=== PATIENT | male | born 1945 | race Caucasian/White ===

== ENCOUNTER → 2023-06-19 06:24 | Day surgery (SDC) | payer OTHER, SELFPAY | LOC: GI 06:24 | PROVIDERS: ATTENDING PHYSICIAN Internal Medicine Gastroenterology; FAMILY PHYSICIAN Family Medicine | DX: D50.0 Iron deficiency anemia secondary to blood loss (chronic) (principal); K57.50 Diverticulosis of both small and large intestine without perforation or abscess without bleeding; K64.8 Other hemorrhoids; D12.2 Benign neoplasm of ascending colon; Z98.0 Intestinal bypass and anastomosis status | CPT/HCPCS: 45385; 43239; 88305 ==

== ENCOUNTER 2023-10-05 18:09 | Inpatient (IN) | payer OTHER, SELFPAY ==
[2023-10-04 19:29] VITALS: BP 114/58
[2023-10-04 19:49] LABS: % Basophils 0.3 % (0-2); % Eosinophils 1.7 % (0-6); % Immature Granulocytes 0.3 % (0-0.5); % Lymphocytes 11.6 % (20.5-51.1); % Monocytes 7.6 % (1.7-9.3); % Neutrophils 78.5 % (42.2-75.2); Absolute Eosinophils 0.1 10^3/uL (0-0.7); Absolute Lymphocytes 0.9 10^3/uL (1.2-3.4); Absolute Monocytes 0.6 10^3/uL (0.1-0.6); Absolute Neutrophils 5.9 10^3/uL (1.4-6.5); Hematocrit 38.6 % (39.0-52.0); Hemoglobin 13.1 g/dL (13.0-18.0); Mean Corp Hgb Conc. 33.9 g/dL (33.0-37.0); Mean Corpuscular Hgb 31.4 pg (27.0-31.0); Mean Corpuscular Volume 92.6 fL (80.0-94.0); Mean Platelet Volume 9.8 fL (7.4-10.4); Nucleated Red Blood Cells % 0 % (-); Platelet Count 132 10^3/uL (130-400); Red Blood Cell Count 4.17 10^6/uL (4.70-6.10); Red Cell Dist. Width 13.2 % (11.5-14.5); Urine Albumin Negative (Neg - Trace); Urine Bilirubin 1+ (Negative); Urine Character Clear (Clear); Urine Color Yellow; Urine Glucose Negative (Negative); Urine Ketone Negative (Negative); Urine Leukocyte Trace (Negative); Urine Nitrite Negative (Negative); Urine Occult Blood 1+ (Negative); Urine Specific Gravity 1.025 (<1.030); Urine Urobilinogen Negative (Neg - 1+); White Blood Cell Count 7.5 10^3/uL (4.8-10.8)
[2023-10-04 19:59] LABS: Lactic Acid 1.3 mmol/L (0.7-2.0)
[2023-10-04 20:07] LABS: ALT (SGPT) 15 U/L (0-50); AST (SGOT) 24 U/L (17-59); Albumin 3.5 g/dl (3.5-5.0); Alkaline Phosphatase 112 U/L (38-126); Blood Urea Nitrogen 27 mg/dl (9-20); Calcium 9.2 mg/dl (8.4-10.2); Carbon Dioxide 24 mmol/L (22-30); Chloride 107 mmol/L (98-107); Glucose 102 mg/dl (70-99); Potassium 4.2 mmol/L (3.5-5.1); Sodium 137 mmol/L (135-145); Total Bilirubin 0.7 mg/dl (0.2-1.3); Total Protein 5.8 g/dl (6.3-8.2); eGFR 35.44
--- NOTE | 2023-10-04 20:45 | ED.GENMED ---
History of Present Illness
<Mojgan Fonseca PA-C - Last Filed: 10/05/23 00:00>
General
Chief Complaint: Flank Pain
Source: patient and spouse
Exam Limitations: none
Time Seen by Provider: 10/04/23 20:33
Nursing documentation reviewed up to this point in time: agreed with
History of Present Illness
History of Present Illness:
Patient is a 77-year-old male with history hypertension, kidney stones presenting to the emergency department for evaluation of right flank pain. Patient states that he initially noticed discomfort in his right flank yesterday afternoon. He did
take a Tylenol at that time which seemed to improve symptoms. He thought pain was better when he woke up this morning although around 4 PM today pain returned and has been worse. He describes a aching pain in his right flank without any radiation
around to his abdomen or down his leg. Patient denies any associated fevers, chills, abdominal pain, diarrhea or constipation. No associated urinary symptoms including urinary frequency, dysuria, or hematuria. Patient does state this feels
similar to his prior kidney stones. He does follow with Dr. Rowland.
Patient denies any recent heavy lifting or inciting injury/trauma.
Past History
<Mojgan Fonseca PA-C - Last Filed: 10/05/23 00:00>
Past History
ED Past Medical History: HTN, Other (Kidney stones, BPH) and Other (Gastric ulcers, obstructive sleep apnea)
ED Past Surgical History: Urological and Other (Hemigastrectomy)
Social History
Tobacco: Non-smoker
Alcohol: Occasional
Personal:
Living: with family
Employment: Retired
Family History
Family History: Other (Noncontributory)
Review of Systems
<Mojgan Fonseca PA-C - Last Filed: 10/05/23 00:00>
Review of Systems
Allergies reviewed?: Yes
All Other Systems: ROS reviewed and negative except as documented in HPI and ROS
Phy Exam
<Mojgan Fonseca PA-C - Last Filed: 10/05/23 00:00>
Physical Exam
Physical Exam:
Vitals: Patient's vital signs are stable. Afebrile
General: Patient is well appearing, no acute distress. Nontoxic-appearing
Skin: Warm and dry, no rashes or lesions
Head: Normocephalic, atraumatic
Eyes: Sclera nonicteric. EOMs intact. No nystagmus.
Throat: Protecting airway
Neck: Normal ROM, no cervical spine tenderness, no meningismus
Cardiac: Regular rate and rhythm, no murmurs.
Pulm: Normal respiratory effort, no wheezes, rales, rhonchi heard on exam.
Abdomen: Abdomen soft. No abdominal tenderness.
Back: No CVA tenderness bilaterally. No rash.
Extremities: No evidence of cyanosis or edema. Great distal pulses
Neuro: AAOx3. CN II-XII intact. No focal neurologic deficits.
Psychiatric: Normal affect.
Course
<Mojgan Fonseca PA-C - Last Filed: 10/05/23 00:00>
Orders/Labs/Results
Orders:
Orders
10/04/23 19:37
CT Abd/pelvis Wo Iv Cont Urgent
Comment:
Reason For Exam: r flank pain
10/04/23 19:42
Complete Blood Count/With Diff Urgent
Comprehensive Metabolic Panel Urgent
Lactic Acid Stat
Urinalysis Reflex To Culture Urgent
Date Specimen was Collected: 10/04/23
Time Specimen was Collected: 19:32
Urine Microscopic Reflex Cult Urgent
10/04/23 20:45
0.9% Sodium Chloride 1000 ml [Nss] 1,000 ml IV BOLUS
10/04/23 23:14
Morphine Sulfate 4 mg IV NOW STA
Ondansetron Injectable [Zofran] 4 mg IV NOW STA
10/04/23 23:30
UROLOGY CONSULT Urgent
Consulting Provider: Kel Castellano
Was physician already notified: Yes
10/04/23 23:35
Admit/Transfer Patient As Directed
Co-Sign Provider:
Level of Care: Observation services
Assign to:: Medical/Surgical
Physician / Group: wiley campbell
Diagnosis: obstructing right ureteral calculus, elizabeth
Code Status As Directed
Resuscitation Status: Full Code
10/04/23 23:37
PRN Pain Medication Management As Directed
May give lesser potent ordered pain med per pt: Yes
preference::
Protocol:: Medication orders for pain may be administered in a
manner that supports deferring to patient preference
when the pt is:
- Requesting an ordered lesser potent pain medication.
Least to most potent pain medications are defined
as: acetaminophen < NSAID < tramadol < opioids
(morphine, oxycodone, hydromorphone).
- Requesting a lesser dose of the same medication IF
ORDERED.
- Requesting a less intrusive route of administration
if both routes are prescribed by the provider (PO <
IV).
Abnormal Lab Results
10/04/23
19:42
RBC 4.17 L 10^6/uL
(4.70-6.10)
Hct 38.6 L %
(39.0-52.0)
MCH 31.4 H pg
(27.0-31.0)
Absolute Lymphs (auto) 0.9 L 10^3/uL
(1.2-3.4)
Neutrophils % 78.5 H %
(42.2-75.2)
Lymphocytes % 11.6 L %
(20.5-51.1)
BUN 27 H mg/dl
(9-20)
Creatinine 1.9 H mg/dL
(0.7-1.3)
Glucose 102 H mg/dl
(70-99)
Total Protein 5.8 L g/dl
(6.3-8.2)
Ur Occult Blood Reflex 1+ A
(Negative)
Urine Bilirubin 1+ A
(Negative)
Leukocyte Esterase Rfl Trace A
(Negative)
Urine RBC 3-6 A /HPF
(0-2)
10/04/23 19:42
10/04/23 19:42
Vital Signs
Initial and Last Documented VS:
Initial Vital Signs
Temp Pulse Resp BP Pulse Ox
98.1 F 63 16 114/58 99
10/04/23 19:29 10/04/23 19:29 10/04/23 19:29 10/04/23 19:29 10/04/23 19:29
Last Documented Vital Signs
Temp Pulse Resp BP Pulse Ox
98.1 F 59 16 143/70 95
10/04/23 19:29 10/04/23 22:12 10/04/23 22:12 10/04/23 23:37 10/04/23 23:45
<Kermit Keane MD - Last Filed: 10/04/23 21:25>
Orders/Labs/Results
Orders:
Orders
10/04/23 19:37
CT Abd/pelvis Wo Iv Cont Urgent
Comment:
Reason For Exam: r flank pain
10/04/23 19:42
Complete Blood Count/With Diff Urgent
Comprehensive Metabolic Panel Urgent
Lactic Acid Stat
Urinalysis Reflex To Culture Urgent
Date Specimen was Collected: 10/04/23
Time Specimen was Collected: 19:32
Urine Microscopic Reflex Cult Urgent
10/04/23 20:45
0.9% Sodium Chloride 1000 ml [Nss] 1,000 ml IV BOLUS
10/04/23 23:14
Morphine Sulfate 4 mg IV NOW STA
Ondansetron Injectable [Zofran] 4 mg IV NOW STA
10/04/23 23:30
UROLOGY CONSULT Urgent
Consulting Provider: Kel Castellano
Was physician already notified: Yes
10/04/23 23:35
Admit/Transfer Patient As Directed
Co-Sign Provider:
Level of Care: Observation services
Assign to:: Medical/Surgical
Physician / Group: wiley campbell
Diagnosis: obstructing right ureteral calculus, elizabeth
Code Status As Directed
Resuscitation Status: Full Code
10/04/23 23:37
PRN Pain Medication Management As Directed
May give lesser potent ordered pain med per pt: Yes
preference::
Protocol:: Medication orders for pain may be administered in a
manner that supports deferring to patient preference
when the pt is:
- Requesting an ordered lesser potent pain medication.
Least to most potent pain medications are defined
as: acetaminophen < NSAID < tramadol < opioids
(morphine, oxycodone, hydromorphone).
- Requesting a lesser dose of the same medication IF
ORDERED.
- Requesting a less intrusive route of administration
if both routes are prescribed by the provider (PO <
IV).
Abnormal Lab Results
10/04/23
19:42
RBC 4.17 L 10^6/uL
(4.70-6.10)
Hct 38.6 L %
(39.0-52.0)
MCH 31.4 H pg
(27.0-31.0)
Absolute Lymphs (auto) 0.9 L 10^3/uL
(1.2-3.4)
Neutrophils % 78.5 H %
(42.2-75.2)
Lymphocytes % 11.6 L %
(20.5-51.1)
BUN 27 H mg/dl
(9-20)
Creatinine 1.9 H mg/dL
(0.7-1.3)
Glucose 102 H mg/dl
(70-99)
Total Protein 5.8 L g/dl
(6.3-8.2)
Ur Occult Blood Reflex 1+ A
(Negative)
Urine Bilirubin 1+ A
(Negative)
Leukocyte Esterase Rfl Trace A
(Negative)
Urine RBC 3-6 A /HPF
(0-2)
10/04/23 19:42
10/04/23 19:42
Vital Signs
Initial and Last Documented VS:
Initial Vital Signs
Temp Pulse Resp BP Pulse Ox
98.1 F 63 16 114/58 99
10/04/23 19:29 10/04/23 19:29 10/04/23 19:29 10/04/23 19:29 10/04/23 19:29
Last Documented Vital Signs
Temp Pulse Resp BP Pulse Ox
98.1 F 59 16 143/70 95
10/04/23 19:29 10/04/23 22:12 10/04/23 22:12 10/04/23 23:37 10/04/23 23:45
<Mojgan Fonseca PA-C - Last Filed: 10/05/23 00:00>
MDM/Problems Addressed
Differential Diagnosis Includes:
Not limited to: Kidney stone, UTI, pyelonephritis, muscle strain, zoster
MDM/Problems Addressed:
77-year-old male with history of kidney stones presenting with 1 day of right flank pain. No associated fever, chills, nausea, vomiting, or urinary symptoms. Vital signs stable. Patient is afebrile. Labs reviewed. No leukocytosis. There is
mild renal insufficiency noted with a creatinine elevation to 1.9 from what appears to be at baseline around 1. Urine does show blood but no evidence of acute UTI. Will obtain dry CT scan to rule out kidney stone. Patient currently comfortable
denying any pain medication. Will give liter of fluids.
CT report shows an approximately 1.2 cm obstructing right ureteral stone with ureteral dilatation and right sided perinephric edema. Patient without any signs of acute infection�suspect perinephric edema likely reactive. Given size of stone and
associated ELIZABETH�will admit to hospitalist for further management. Given ELIZABETH�will avoid nephrotoxins. Morphine given. Case discussed with urology who will consult tomorrow. Plan for OR tomorrow. Patient accepted to hospitalist service. Patient
seen by attending physician.
Chronic conditions affecting care:
History of kidney stones
Acute Exacerbation and/or Progression of Chronic Illness:
Obstructing right ureteral stone
<Mojgan Fonseca PA-C - Last Filed: 10/05/23 00:00>
*Radiology
Radiology exam reviewed: preliminary read by ED provider (12 mm obstructing right ureteral calculus with associated right ureteral dilatation and right sided perinephric edema) and radiology read reviewed (1.1 cm stone in right mid ureter with
moderate hydronephrosis and perinephric stranding)
*Pulse Oximetry
Patient hypoxic: no
*EKG
Interpreted by ED Provider?: NA
*Art Framing Manager Interpretation
Rate: Art Framing Manager- N/A
*Critical Care Note
Total Time (30-74mins, 75-104mins- exclusive of procedures): Not Applicable
<Mojgan Fonseca PA-C - Last Filed: 10/05/23 00:00>
Patient Management
Discussion with other providers: Hospitalist and Die Attaching Machine Tender (Urology-Dr. Castellano)
Escalation/DeEscalation of care consider admission/obs:
Admit for further management. Plan for OR tomorrow with urology.
ED Attending Note
<Mojgan Fonseca PA-C - Last Filed: 10/05/23 00:00>
-
Portions of this chart may have been created with voice recognition software.� Occasional wrong word or��sound alike� substitutions may have occurred due to the inherent limitations of voice recognition software.
<Kermit Keane MD - Last Filed: 10/04/23 21:25>
ED Attending Note
Patient seen and examined by attending physician: Yes
ED Attending Note:
I have seen and evaluated the patient with a [id number] encounter. I have spoken to the advance practicer provider and involved in the medical history, the physical exam, medical decision making.
Evaluation and management service: agree unless noted differently below.
Results interpretation: agree unless noted differently below.
Focused HPI: 77-year-old male with history as documented presents to the emergency room for evaluation of right flank pain. Patient reports onset of symptoms yesterday and then been waxing and waning since then. Reports a sharp pain in the right
flank radiates towards the right lower abdomen. No clear triggering or relieving factors noted. Denies any associated nausea or vomiting. Denies any change in his bowels. Denies any dysuria, hematuria, change in frequency. Denies any fevers.
He reports identical symptoms with prior kidney stones. Has previous seen Dr. Rowland for urology. Last kidney stone was 10 years ago he says.
Physical exam: Awake alert not in distress. Vital signs normal. Abdomen soft nontender to deep palpation with no masses. No CVA tenderness.
Medical Decision Makin-year-old male presents for evaluation of right flank pain identical to prior kidney stones. Vitals normal. Exam as above. Will check labs including a CBC and a CMP. Check urinalysis. Sent for CT abdomen pelvis.
Offered pain control patient declined. Will provide IV fluid and reassess after the above.
Discharge Plan
Departure
Patient Disposition: Admit
Date of Disposition: 10/04/23
Time of Disposition: 23:26
Presentation/result/management discussed w/ accepting MD/DO: Hospitalist
Discharge Problem:
Right ureteral calculus, ELIZABETH (acute kidney injury)
Prescriptions:
No Action
atenolol 25 MG tablet
25 mg PO DAILY
multivitamin [Daily Multiple] 1 EACH tablet
1 ea PO DAILY
diphenoxylate-atropine 1 TABLET tablet
1 tab PO PRN PRN (Reason: diarrhea)
metronidazole 500 MG tablet
500 mg PO TID
tamsulosin 0.4 mg Capsule
0.4 mg PO DAILY
Referrals:
UNKNOWN - PT DOES,NOT KNOW [Family Provider] -
Interventions
Interventions:
*Risk Screen - Suicide Last Done: 10/04/23 19:29
*General Assessment Last Done: 10/04/23 20:41
*Neglect/Abuse Screening Last Done: 10/04/23 19:29
RU-Vpttcp-Qlhpxeebco Assessment Last Done: 10/04/23 20:58
ED-Male Genitourinary Assessment Last Done: 10/04/23 20:58
Discharge Date and Time
Print Language: TAJIK
[2023-10-04] MEDS: NSS 1000 IV (20:51)
[2023-10-04 20:58] VITALS: BMI 25.8
[2023-10-04 22:12] VITALS: BP 135/66
--- NOTE | 2023-10-04 23:32 | HPS.HSE ---
Family Physician
-
Family Physician: NOT KNOW UNKNOWN - PT DOES
Chief Complaint
-
Right flank pain
History of Present Illness
77-year-old male complaining of right flank pain yesterday afternoon relieved with Tylenol. He reports waking up this morning at around 4 PM this afternoon the pain returned and became worse with an aching pain in his right flank around to his
abdomen. He denies any urinary frequency, urgency, hematuria, dysuria, fever, chills, abdominal pain, constipation, chest pain, palpitations, shortness breath, cough. He has history of prior kidney stones and follows Dr. Rowland. Other past
medical history includes hypertension, BPH, gastric ulcers, ROSA, hemigastrectomy.
Medical History
Past Medical History
Past Medical History: Reports Other
Additional Past Medical History:
hypertension
BPH
gastric ulcers
ROSA
hemigastrectomy
Past Surgical History: Reports Other
Additional Past Surgical History:
hemigastrectomy
Social History
Tobacco: Non-smoker
Alcohol: Occasional
Drug: None
Personal:
Living: With Family
Employment: Retired
Family History
Family History: Other (Father AL mother CHF)
Allergies / Home Medications
Allergies reflects when Allergies were last updated in [facility].
Home Medications with original date entered in [employer] [facility]
Allergy/Medication List:
Medications on admission are unable to be verified or confirmed at this time.
Review of Systems
-
History Source: Patient
A 12 point ROS was completed and negative except as noted: Yes
Constitutional: Denies Fever or Chills
EENT: Denies Sore Throat or Runny Nose
Respiratory: Denies Cough or Trouble Breathing
Cardiac: Denies Chest Pain, Diaphoresis, Palpitations or Syncope
Abdomen/GI: Reports Abdominal Pain (Right flank); Denies Nausea, Vomiting, Diarrhea, Constipated or Bloody Stools
: Reports Flank Pain (Right); Denies Dysuria, Frequency, Incontinence, Difficulty Voiding or Urgency
Musculoskeletal: Denies Joint Pain or Edema
Skin: Denies Itching or Rash
Neurological: Denies Dizzy or Headache
Endocrine: Reports No Symptoms
Hematologic/Lymphatic: Reports No Symptoms
Psych: Reports Calm
Physical Exam
Vital Signs
Vital Signs
Temp Pulse Resp BP Pulse Ox
98.1 F 59 16 135/66 98
10/04/23 19:29 10/04/23 22:12 10/04/23 22:12 10/04/23 22:12 10/04/23 22:12
Physical Exam
General: Comfortable and Conversant; No Fever or Chills
HEENT: NormoCephalic, Anicteric, Moist mucous membranes, PERRLA, [place] Conjunctivae, No Ptosis and Neck Nontender
Respiratory: Clear; No Wheezes, Rales or Rhonchi
Cardiac: S1/S2 and Regular Rhythm; No Murmur, Rub, Gallop or Peripheral Edema
Breast: Deferred by me
GI: Soft, Non Distended, Normal Bowel Sounds, Tender (Right side abdomen) and No Hepatosplenomegaly
Rectal: Deferred by Provider
Genito-urinary: Costovertebral angle tend (Right)
Musculoskeletal: No Clubbing, No Cyanosis and No Edema
Skin: Warm and Dry; No Rash or Jaundice
Neuro: AO x 3, No Motor Deficits, Nonfocal/grossly intact, Cranial Nerves Intact and No Sensory Deficits; No Slurred Speech, Facial Droop or Tremors
Psych: Calm
Laboratory Results
-
10/04/23 19:42
10/04/23 19:42
Laboratory Results
Lactic Acid 1.3 mmol/L (0.7-2.0) 10/04/23 19:42
Total Bilirubin 0.7 mg/dl (0.2-1.3) 10/04/23 19:42
AST 24 U/L (17-59) 10/04/23 19:42
ALT 15 U/L (0-50) 10/04/23 19:42
Alkaline Phosphatase 112 U/L (38-126) 10/04/23 19:42
Data Reviewed
-
CT Scan: Report Reviewed by me
Lab Data: Labs Reviewed by me
Impression/Plan
-
Impression/plan:
Admit to [facility]
#Obstructing right ureteral calculus with ureteral dilation perinephric edema
Abdomen pelvis CT: 12.5 mm obstructing right ureteral stone with ureteral dilation and perinephric edema
Afebrile, nontoxic, WBC 7.5 UA clean
-Consult Dr. smith
-N.p.o. after midnight for OR tomorrow
-IV NSS
-IV pain control tylenol, iv Morphine
-Zofran as needed
#ELIZABETH
Creat 1.9
IV NSS
-Follow BMP
#BPH
-Continue Flomax 0.4 mg daily
#HTN�benign
BP 135/66
Continue atenolol 25 mg daily with hold parameters
#Gastric ulcers/hemigastrectomy Hx
-Will add IV Protonix 40 mg daily
#ROSA
DVT prophylaxis
SCDs
Full code
[2023-10-04] MEDS: MORPHINE SULFATE 4 MG IV (23:35)
[2023-10-04] MEDS: ZOFRAN 4 MG IV (23:36)
[2023-10-04 23:37] VITALS: BP 143/70
--- NOTE | 2023-10-04 23:39 | W.PN.UPDATE ---
Update Note
Progress Note Update
This note serves as an addendum to the H&P by fell cutter TITI Ronit LAZAR
HPI
77M HX HTN, Nephrolithiasis seen at ER foe evaluation of Rt flank pain since pm.
- Initially improved pain with Tylenol
- around last evening, recurrent worsening aching Rt flank pain.
ROS:
denies any associated fevers, chills,
PHX
HTN
Kidney stones
BPH
Gastric ulcers,
Hemigastrectomy
ROSA
HX CDiff
Reviewed VS: unremarkable
PE
Gen: No toxic
HEENT: anicteric
Neck: supple
Lungs:CTA
Cor: S1 S2
Abdomen: benign
; Rt CVA tenderness
DUPLICATING MACHINE SERVICER: AAO3, NFND
MS: no edema
Psych: appropriate
Data
Nl WCC
Cr 1.9 - baseline is 1.0
eGFR 35
UA
3-[address] AP without contrast
1.1 cm stone in mid Rt ureter c/b moderate Rt HN. Modrate peripnephric stranding.
ASSESSMENT & PLAN
Pending Rx reconciliation
1.1 cm stone in mid Rt ureter c/b moderate Rt HN.
Moderate perinephric stranding.
Unremarkable UA : Urine doesn't appear infected
Clinically not septic
- Observing off ABx
- IV NS
- Tyelnol PRN
- NPO
- Uro consulted
ELIZABETH suspect due to obstruction
- IVF
- Trend Cr
Pre existing conditions:
HTN
Kidney stones
BPH
Gastric ulcers,
Hemigastrectomy
ROSA
HX C Diff
DVT Px: SCD
Code: Full code
Obs MS
[2023-10-05] VITALS (14 sets, daily range): BP systolic 116–162; BP diastolic 55–101; PULSE 76–98; BMI 25.5
--- NOTE | 2023-10-05 01:00 | PTCARENOTE ---
Pt arrived to 2S at 0100 from ED for a right kidney stone on a stretcher and walked to bed. Pt not complaining of pain at this time. Bed locked and in lowest position. Call marquez within reach and patient oriented to room.
[2023-10-05] MEDS: NSS 1000 IV ×2 (01:37→11:46)
--- NOTE | 2023-10-05 07:15 | CONS.URO ---
Consultation
-
Date/Time Consultation Requested: 10/05/23
Date/Time Consultation Performed: 10/05/23
Requesting Provider: Mahesh
Performing Provider: Gray
Reason for Consultation: obstructing right ureteral stone, ELIZABETH
Medical History
History of Present Illness
77M w/ prior urologic h/o BPH (follows w/ Dr. Rowland) presenting with worsening right flank pain x24 hrs.
Denies worsening of urinary symptoms.
Denies hematuria or dysuria.
Denies N/V.
WBC WNL
Cr 2.1 (1.9 on admission, elevated from baseline)
UA +RBCs, not indicative of UTI
CTAP w/o IV contrast:
10 mm proximal right ureteral stone w/ moderate hydroureteronephrosis
x2 small non-obstructing right renal stones
Small non-obstructing left renal stone
Left lower pole exophytic mass - possible hyperdense cyst
A/P:
ELIZABETH
Obstructing right ureteral stone
Obstructive uropathy - serologic and radiographic
Left renal cystic mass - possible hyperdense cyst vs. tumor
- To OR today for right URS/LL/stone extraction stent placement vs. stent placement only
- IV Ancef 2g regional maintenance manager to OR
- Surgical consent signed on chart
- Plan for outpatient CT vs. MRI w/ IV contrast (will d/w Dr. Rowland)
Detailed discussion including SDM had w/ patient regarding risks, benefits, alternatives, and potential complications of URS/LL/stone extraction/stent placement.
Risks and potential complications include but not limited to urosepsis, bleeding, ureteral/bladder injury, risk of ureteral stricture formation, need for additional procedures.
D/w patient.
D/w Hospitalist.
Allergies/Home Medications
Allergies
Allergy/AdvReac Type Severity Reaction Status Date / Time
No Known Drug Allergies Allergy Unknown Verified 10/04/23 19:29
Home Medications
�Medication �Instructions �Recorded �Confirmed �Type
tamsulosin 0.4 mg capsule 0.4 mg PO DAILY Urinary Issue 11/19/22 10/05/23 History
amlodipine 5 mg tablet 5 mg PO DAILY Blood Pressure 10/05/23 10/05/23 History
atorvastatin 40 mg tablet 40 mg PO DAILY High Cholesterol 10/05/23 10/05/23 History
benazepril 10 mg tablet 10 mg PO DAILY Blood Pressure 10/05/23 10/05/23 History
ferrous sulfate 325 mg (65 mg 325 mg PO WEEKLY Supplement 10/05/23 10/05/23 History
iron) tablet (Iron (ferrous
sulfate))
finasteride 5 mg tablet 5 mg PO DAILY Urinary Issue 10/05/23 10/05/23 History
Physical Exam
Vital Signs
Vital Signs
Temp Pulse Resp BP Pulse Ox
97.8 F 59 14 137/65 98
10/05/23 07:00 10/05/23 07:00 10/05/23 07:00 10/05/23 07:00 10/05/23 07:00
Lab / Testing Results
Laboratory Results
10/05/23 05:56
10/05/23 05:56
[2023-10-05 07:23] LABS: % Basophils 0.4 % (0-2); % Eosinophils 2.1 % (0-6); % Immature Granulocytes 0.3 % (0-0.5); % Lymphocytes 12.6 % (20.5-51.1); % Neutrophils 75.6 % (42.2-75.2); Absolute Eosinophils 0.2 10^3/uL (0-0.7); Absolute Monocytes 0.7 10^3/uL (0.1-0.6); Absolute Neutrophils 5.8 10^3/uL (1.4-6.5); Hematocrit 36.4 % (39.0-52.0); Hemoglobin 12.5 g/dL (13.0-18.0); Mean Corp Hgb Conc. 34.3 g/dL (33.0-37.0); Mean Corpuscular Hgb 31.3 pg (27.0-31.0); Mean Platelet Volume 10.8 fL (7.4-10.4); Nucleated Red Blood Cells % 0 % (-); Platelet Count 117 10^3/uL (130-400); Red Cell Dist. Width 13.2 % (11.5-14.5); White Blood Cell Count 7.7 10^3/uL (4.8-10.8)
[2023-10-05 07:51] LABS: ALT (SGPT) 13 U/L (0-50); AST (SGOT) 22 U/L (17-59); Alkaline Phosphatase 104 U/L (38-126); Blood Urea Nitrogen 28 mg/dl (9-20); Calcium 8.4 mg/dl (8.4-10.2); Carbon Dioxide 21 mmol/L (22-30); Chloride 109 mmol/L (98-107); Estimated Creatinine Clearance 29 ml/min; Glucose 92 mg/dl (70-99); Potassium 4.5 mmol/L (3.5-5.1); Sodium 136 mmol/L (135-145); Total Bilirubin 0.7 mg/dl (0.2-1.3); Total Protein 5.3 g/dl (6.3-8.2); eGFR 31.43
[2023-10-05] MEDS: FLOMAX 0.4 MG PO (09:06)
--- NOTE | 2023-10-05 10:52 | W.PN.HOSP.TC ---
Today's Communication/Plan
-
OR later today
Trend creatinine
Continue with fluids
Assessment / Plan
Assessment / Plan
#Obstructing right ureteral calculus with ureteral dilation perinephric edema
Abdomen pelvis CT: 12.5 mm obstructing right ureteral stone with ureteral dilation and perinephric edema
Afebrile, nontoxic, WBC 7.5 UA clean
-Consult Dr. smith
-N.p.o. after midnight for OR later today for ureteral stent and possible stone extraction persistent placement only.
-IV NSS
-IV pain control tylenol, iv Morphine
-Zofran as needed
#ELIZABETH likely secondary postrenal with ureteral stone obstruction
Creatinine bumped to 2.1.
IV NSS
Continue to trend BMP postprocedure
# Left renal cystic lesion likely secondary to cyst complex cyst versus malignancy
-Will need outpatient evaluation with urology.
-Sees Dr. Rowland as outpatient. Urology aware.
#BPH
-Continue Flomax 0.4 mg daily
#HTN�benign
Continue atenolol 25 mg daily with hold parameters
#Gastric ulcers/hemigastrectomy Hx
-Will add IV Protonix 40 mg daily
#ROSA
DVT prophylaxis
SCDs
Anticipated Discharge: 24 - 48 hours
Subjective/Interval History
-
Date of Service: October 05, 2023
States of R flank pain
Objective Data
-
Labs:
Laboratory Results
10/05/23
05:56
WBC 7.7
Hgb 12.5 L
Hct 36.4 L
Plt Count 117 L
Sodium 136
Potassium 4.5
Chloride 109 H
Carbon Dioxide 21 L
BUN 28 H
Creatinine 2.1 H
Glucose 92
Calcium 8.4
Total Bilirubin 0.7
AST 22
ALT 13
Alkaline Phosphatase 104
Vital Signs:
Vital Signs
Temp Pulse Resp BP Pulse Ox
97.8 F 57 14 137/65 98
10/05/23 07:00 10/05/23 09:05 10/05/23 07:00 10/05/23 07:00 10/05/23 07:00
Physical Exam
-
General: Well Developed and No Apparent Distress
HEENT: Normocephalic, Atraumatic, Moist Mucous Membranes and Hearing Impaired
Respiratory: Clear to Auscultation
Cardiac: Regular Rhythm and S1/S2; Negative Murmur, Rub or Gallop
GI: Soft, Nondistended, Normal Bowel Sounds and Tender (R flank); Negative Organomegaly
Rectal: Deferred by Provider
Musculoskeletal: No Clubbing, No Cyanosis and No Edema
Skin: Negative Rash
Neuro: Awake and Nonfocal/Grossly Intact
--- NOTE | 2023-10-05 12:43 | CM ---
Initial assessment completed with . Patient was sound asleep. Patient lives with his in a 2 story split level home with 5 steps to enter, B/B on 2nd floor and no bath on lower level. No DME or in-home services. 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
independent and drove. No psychiatric hospitalizations. Pharmacy is [facility] on [address] [facility] in [place] and PCP is [facility]. Anticipate no needs at discharge.
--- NOTE | 2023-10-05 17:05 | W.IMMPOSTOP ---
Surgical Immed Post Op Note
-
Primary Surgeon: Peffer
Assisting Surgeon: none
Pre-op Diagnosis: R ureteral stone
Post-op Diagnosis: R ureteral stone, R ureteral stricture
Procedure Performed: Cystoscopy, R ureteroscopy, laser lithotripsy, ureteral stent
Anesthesia Type: genera;
Specimen / Cultures: stone
Estimated Blood Loss: 2cc
Complications: none
Operative Findings: high grade stricture distal to stone, though soft and easily dilated
stone removed
6x24 stent
--- NOTE | 2023-10-05 17:54 | PTCARENOTE ---
Pt arrived to 2S in bed. Nasal cannula maintained. Pt denies pain at this time. IVF reconnected infusing per order. Pt instructed to ring for assistance getting OOB, verbalized understanding. Bed locked and in the lowest position, safety maintained.
Oriented to room and call marquez, family at bedside.
[2023-10-05] MEDS: TYLENOL 650 MG PO (21:47)
[2023-10-06] MEDS: NSS 1000 IV ×2 (00:45→08:29)
[2023-10-06 06:00] VITALS: BMI 25.2
[2023-10-06 07:15] VITALS: BP 124/56
--- NOTE | 2023-10-06 07:17 | W.PN.URO.CBU ---
Today's Communication / Plan
-
discharge when rnal function recovered
Assessment / Plan
-
obstructing stone
KIMMY
s/p ureteroscopy/laser litho and stent
expected hematuria
continue flomax and proscar
if cr downtrending today- cleared for discharge urologically with outpt f/u with dr dupree
Diagnosis
-
Date of Service: October 06, 2023
-
Patient Diagnosis:
stone
KIMMY
Post Op Day:
10/04- right ureteroscopy/laser litho and stent
Subjective
-
pt feels good
voiding- urine durham colored- but says he is urinating freely with no clots
minimal discomfort
Objective
-
Vital Signs
Temp Pulse Resp BP Pulse Ox
97.5 F 60 16 143/61 94
10/05/23 23:10 10/05/23 23:10 10/05/23 23:10 10/05/23 23:10 10/05/23 23:10
Intake and Output
10/05/23 10/06/23 10/07/23
06:59 06:59 06:59
Intake Total 1425 / 1425
Output Total 1425 / 1425
Balance 0 / 0
Intake:
Oral fluids 225 / 225
IV fluids (Total) 1200 / 1200
Output:
Urine, Voided 1425 / 1425
Other:
Number of approximated MODERATE 2
amounts of urine
Number of approximated LARGE 1
amounts of urine
Review of Systems
-
Constitutional: No Symptoms
Respiratory: No Symptoms
Cardiac: No Symptoms
Abdomen/GI: No Symptoms
: Dysuria
Physical Exam
-
General - no acute distress
Abdomen - soft, non-tender
[2023-10-06] MEDS: PROSCAR 5 MG PO (08:26)
[2023-10-06] MEDS: LIPITOR 40 MG PO (08:26)
[2023-10-06] MEDS: FLOMAX 0.4 MG PO (08:27)
[2023-10-06] MEDS: NORVASC 5 MG PO (08:27)
[2023-10-06 08:53] LABS: % Basophils 0.1 % (0-2); % Immature Granulocytes 0.4 % (0-0.5); % Monocytes 7.4 % (1.7-9.3); % Neutrophils 83.1 % (42.2-75.2); Absolute Lymphocytes 0.7 10^3/uL (1.2-3.4); Absolute Monocytes 0.6 10^3/uL (0.1-0.6); Absolute Neutrophils 6.6 10^3/uL (1.4-6.5); Hematocrit 36.2 % (39.0-52.0); Hemoglobin 12.4 g/dL (13.0-18.0); Mean Corp Hgb Conc. 34.3 g/dL (33.0-37.0); Mean Corpuscular Hgb 31.5 pg (27.0-31.0); Mean Corpuscular Volume 91.9 fL (80.0-94.0); Mean Platelet Volume 10.1 fL (7.4-10.4); Nucleated Red Blood Cells % 0 % (-); Platelet Count 127 10^3/uL (130-400); Red Blood Cell Count 3.94 10^6/uL (4.70-6.10); Red Cell Dist. Width 13.2 % (11.5-14.5); White Blood Cell Count 7.9 10^3/uL (4.8-10.8)
[2023-10-06 10:09] LABS: ALT (SGPT) 12 U/L (0-50); AST (SGOT) 20 U/L (17-59); Alkaline Phosphatase 90 U/L (38-126); Blood Urea Nitrogen 21 mg/dl (9-20); Calcium 8.7 mg/dl (8.4-10.2); Carbon Dioxide 22 mmol/L (22-30); Chloride 109 mmol/L (98-107); Estimated Creatinine Clearance 46 ml/min; Glucose 160 mg/dl (70-99); Potassium 4.6 mmol/L (3.5-5.1); Sodium 137 mmol/L (135-145); Total Bilirubin 0.8 mg/dl (0.2-1.3); Total Protein 5.1 g/dl (6.3-8.2); eGFR 55.88
--- NOTE | 2023-10-06 10:30 | W.PN.HOSP.TC ---
Today's Communication/Plan
-
dc home
Assessment / Plan
Assessment / Plan
#Obstructing right ureteral calculus with ureteral dilation perinephric edema
Abdomen pelvis CT: 12.5 mm obstructing right ureteral stone with ureteral dilation and perinephric edema
Afebrile, nontoxic, WBC 7.5 UA clean
-Consult Dr. smith
-DC fluids. Underwent to the operating room. s/p Cystoscopy, R ureteroscopy, laser lithotripsy, ureteral stent
-Operative Findings: high grade stricture distal to stone, though soft and easily dilated stone removed 6x24 stent
-
#ELIZABETH likely secondary postrenal with ureteral stone obstruction
Creatinine down trended to 1.3. Repeat BMP as outpatient.
IV NSS
Continue to trend BMP postprocedure
# Left renal cystic lesion likely secondary to cyst complex cyst versus malignancy
-Will need outpatient evaluation with urology.
-Sees Dr. Rowland as outpatient. Urology aware.
#BPH
-Continue Flomax 0.4 mg daily
#HTN�benign
Continue Norvasc and restart BERNARDA inhibitor in 2 to 3 days.
#Gastric ulcers/hemigastrectomy Hx
-Will add IV Protonix 40 mg daily
#ROSA
DVT prophylaxis
SCDs
Disposition Home later today.
More than 30 minutes spent in discharge including
Final examination of the patient
Summarizing hospital stay
Instructions for continuing care to all relevant caregivers
Preparation of discharge records, prescriptions, and referral forms
Total time spent (in minutes): 52
Anticipated Discharge: Today
Subjective/Interval History
-
Date of Service: October 06, 2023
Denies any rasheed abdominal pain. Tolerating diet.
Objective Data
-
Labs:
Laboratory Results
10/06/23
08:22
WBC 7.9
Hgb 12.4 L
Hct 36.2 L
Plt Count 127 L
Sodium 137
Potassium 4.6
Chloride 109 H
Carbon Dioxide 22
BUN 21 H
Creatinine 1.3
Glucose 160 H
Calcium 8.7
Total Bilirubin 0.8
AST 20
ALT 12
Alkaline Phosphatase 90
Vital Signs:
Vital Signs
Temp Pulse Resp BP Pulse Ox
98.2 F 58 14 124/56 96
10/06/23 07:15 10/06/23 08:27 10/06/23 07:15 10/06/23 08:27 10/06/23 07:15
I&O
10/05/23 10/06/23 10/07/23
06:59 06:59 06:59
Intake Total 1425 / 1425
Output Total 1425 / 1425
Balance 0 / 0
Physical Exam
-
General: Well Developed and No Apparent Distress
HEENT: Normocephalic, Atraumatic, Moist Mucous Membranes and Hearing Impaired
Respiratory: Clear to Auscultation
Cardiac: Regular Rhythm and S1/S2; Negative Murmur, Rub or Gallop
GI: Soft, Nontender, Nondistended and Normal Bowel Sounds; Negative Organomegaly
Rectal: Deferred by Provider
Musculoskeletal: No Clubbing, No Cyanosis and No Edema
Skin: Negative Rash
Neuro: Awake and Nonfocal/Grossly Intact
Psych: Calm
--- NOTE | 2023-10-06 10:39 | W.DCSUMMARY ---
Discharge Summary
Discharge Data
Date of Admission: 10/05/23
Date of Discharge: 10/06/23
-
Pending Results: No
Hospital Course
77-year-old male past medical history of hypertension, BPH, renal stones presenting with right flank pain. Patient upon admission underwent CT abdomen CT: 12.5 mm obstructing right ureteral stone with ureteral dilation and perinephric edema.
Consulted urology and patient underwent to the operating room. Underwent to the operating room. s/p Cystoscopy, R ureteroscopy, laser lithotripsy, ureteral stent Operative Findings: high grade stricture distal to stone, though soft and easily
dilated stone removed 6x24 stent. Patient also had acute kidney injury which was seen post renal second ureteral stone obstruction. Creatinine down trended with IV fluid and resolution of obstruction. Creatinine down trended. Incidental finding
on the CT abdomen with left renal cystic lesion. Urology aware and will follow up with outpatient imaging with CT or MRI abdomen. Patient was eval by PT and recommended no further need required. Patient be discharged home with outpatient
follow-up for ureteral stent removal.
Discharge Plan
-
Patient Disposition: Home (Routine Discharge)
Discharge Diagnosis/Procedures: Obstructing renal stone status post Cystoscopy, Right ureteroscopy, laser lithotripsy, ureteral stent
Condition: Fair
Diet: Regular
Activity: With assistance and As tolerated
Driving Restrictions: As prior to admission
Blood Work: BMP in 1 week with primary doctor.
Others Tests: left renal exophytic lesion possibly cyst. Discussed with urology about repeat imaging studies CT vs. MRI with contrast.
Referrals:
Joe Quiroga MD [Active] - in less than 1 week (Follow-up for stent removal and for left renal exophytic lesion possibly cyst. Discussed with urology about repeat imaging studies CT vs. MRI with contrast. )
UNKNOWN - PT DOES,NOT KNOW [Family Provider] -
Prescriptions:
Continued
tamsulosin 0.4 mg Capsule
0.4 mg PO DAILY
atorvastatin 40 mg Tablet
40 mg PO DAILY
amlodipine 5 mg Tablet
5 mg PO DAILY
ferrous sulfate [Iron (ferrous sulfate)] 325 mg (65 mg iron) Tablet
325 mg PO WEEKLY
finasteride 5 mg Tablet
5 mg PO DAILY
Held
benazepril 10 mg Tablet
10 mg PO DAILY
Hold Instructions: Resume on 10/08/23.
Discharge Orders:
Discharge Patient (As Directed); Ordered 10/06/23
Ordered By: Jose Raul Aragon
Discharge Date and Time
Discharge Date/Time: 10/06/23 13:06
Print Language: CHINESE
[2023-10-06 11:20] VITALS: BP 111/59
== END 2023-10-06 13:06 | disposition home or self-care (01) | DRG 661 ==
LOC: 2 SOUTH 18:09
PROVIDERS: Anesthesiology; Clinical Nurse Specialist Family Health; Urology; ADMITTING PHYSICIAN Internal Medicine; ATTENDING PHYSICIAN Hospitalist; CONSULT PHYSICIAN Surgery; EMERGENCY PHYSICIAN Emergency Medicine
PROC: 5A09357 Assistance with Respiratory Ventilation, Less than 24 Consecutive Hours, Continuous Positive Airway Pressure (ICD-10-PCS; 2023-10-05)
PROC: 0TC68ZZ Extirpation of Matter from Right Ureter, Via Natural or Artificial Opening Endoscopic (ICD-10-PCS; 2023-10-05)
PROC: 0T768DZ Dilation of Right Ureter with Intraluminal Device, Via Natural or Artificial Opening Endoscopic (ICD-10-PCS; 2023-10-05)
DX: N13.2 Hydronephrosis with renal and ureteral calculous obstruction (principal); I10 Essential (primary) hypertension; N17.9 Acute kidney failure, unspecified; N28.1 Cyst of kidney, acquired; N40.0 Benign prostatic hyperplasia without lower urinary tract symptoms; G47.33 Obstructive sleep apnea (adult) (pediatric); Z79.899 Other long term (current) drug therapy; Z87.11 Personal history of peptic ulcer disease; Z87.442 Personal history of urinary calculi; Z82.49 Family history of ischemic heart disease and other diseases of the circulatory system
CPT/HCPCS: 74176; 74420; 76000; 80053; 81003; 81015; 82365; 83605; 85025; 96361; 96374; 96375; 97161; 99285; A4300; C1758; C1769; C1894; C2617

== ENCOUNTER 2024-05-21 06:23 | Day surgery (SDC) | payer OTHER, SELFPAY ==
[2024-05-07 11:31] LABS: Hematocrit 43.3 % (39.0-52.0); Hemoglobin 14.1 g/dL (13.0-18.0); Mean Corp Hgb Conc. 32.6 g/dL (33.0-37.0); Mean Corpuscular Hgb 27.8 pg (27.0-31.0); Mean Corpuscular Volume 85.4 fL (80.0-94.0); Mean Platelet Volume 10.2 fL (7.4-10.4); Platelet Count 164 10^3/uL (130-400); Red Blood Cell Count 5.07 10^6/uL (4.70-6.10); Red Cell Dist. Width 14.6 % (11.5-14.5); White Blood Cell Count 5.9 10^3/uL (4.8-10.8)
[2024-05-07 12:11] LABS: Blood Urea Nitrogen 17 mg/dl (9-20); Calcium 9.3 mg/dl (8.4-10.2); Carbon Dioxide 26 mmol/L (22-30); Chloride 105 mmol/L (98-107); Glucose 91 mg/dl (70-99); Potassium 4.1 mmol/L (3.5-5.1); Sodium 139 mmol/L (135-145); eGFR > 60.00
[2024-05-07 14:15] VITALS: BMI 25.8
[2024-05-21] VITALS (8 sets, daily range): BP systolic 90–129; BP diastolic 51–83; BMI 25.8
[2024-05-21] MEDS: TYLENOL 1000 MG PO (13:03)
[2024-05-21] MEDS: NORMOSOL-R/PLASMALYTE-A 1000 IV (13:04)
== END 2024-05-21 17:38 | disposition home or self-care (01) ==
LOC: SDS 06:23
PROVIDERS: ATTENDING PHYSICIAN Surgery; FAMILY PHYSICIAN Family Medicine
DX: K40.90 Unilateral inguinal hernia, without obstruction or gangrene, not specified as recurrent (principal)
CPT/HCPCS: 49505; 36415; 80048; 85027; C1781

== ENCOUNTER → 2024-07-04 14:55 | Outpatient (REF) | payer OTHER, SELFPAY | LOC: HWRAD 14:55 | PROVIDERS: ATTENDING PHYSICIAN Family Medicine | DX: M54.6 Pain in thoracic spine (principal) | CPT/HCPCS: 71046; 72072 ==

== ENCOUNTER → 2024-09-22 10:10 | Outpatient (REF) | payer OTHER, SELFPAY | LOC: HWRCS 10:10 | PROVIDERS: ATTENDING PHYSICIAN Internal Medicine Interventional Cardiology; FAMILY PHYSICIAN Family Medicine | DX: I35.2 Nonrheumatic aortic (valve) stenosis with insufficiency (principal) | CPT/HCPCS: 93306 ==

== ENCOUNTER 2024-10-11 06:02 | Inpatient (IN) | payer OTHER, SELFPAY ==
[2024-10-11] VITALS (13 sets, daily range): BP systolic 116–160; BP diastolic 57–77; BMI 32.9; BMI 24.4
[2024-10-11 03:33] LABS: Hematocrit 40.9 % (39.0-52.0); Hemoglobin 13.8 g/dL (13.0-18.0); Mean Corp Hgb Conc. 33.7 g/dL (33.0-37.0); Mean Corpuscular Volume 88.3 fL (80.0-94.0); Nucleated Red Blood Cells % 0 % (-); Platelet Count 142 10^3/uL (130-400); Red Cell Dist. Width 14.5 % (11.5-14.5)
[2024-10-11] MEDS: NSS 1000 IV ×3 (03:37→22:48)
[2024-10-11] MEDS: TORADOL 15 MG IV (03:37)
[2024-10-11] MEDS: ZOFRAN 4 MG IV (03:37)
[2024-10-11] MEDS: MORPHINE SULFATE 4 MG IV (03:37)
[2024-10-11 03:55] LABS: ALT (SGPT) 19 U/L (0-50); AST (SGOT) 23 U/L (17-59); Albumin 3.7 g/dl (3.5-5.0); Alkaline Phosphatase 132 U/L (38-126); Blood Urea Nitrogen 31 mg/dl (9-20); Calcium 9.8 mg/dl (8.4-10.2); Carbon Dioxide 25 mmol/L (22-30); Chloride 109 mmol/L (98-107); Estimated Creatinine Clearance 36 ml/min; Glucose 121 mg/dl (70-99); Potassium 4.4 mmol/L (3.5-5.1); Sodium 140 mmol/L (135-145); Total Protein 6.0 g/dl (6.3-8.2); eGFR 50.81
[2024-10-11 04:56] LABS: Urine Character Clear (Clear)
[2024-10-11 05:09] LABS: Urine Squamous Cell 16-20 /LPF (Few)
[2024-10-11 05:10] LABS: Urine Red Blood Cell 60-70 /HPF (0-2); Urine White Cell 0-2 /HPF (0-5)
--- NOTE | 2024-10-11 05:37 | ED.GENMED ---
History of Present Illness
General
Chief Complaint: Flank Pain
Source: patient
Exam Limitations: none
Time Seen by Provider: 10/11/24 03:33
Nursing documentation reviewed up to this point in time: agreed with
History of Present Illness
History of Present Illness:
Note:
CHIEF COMPLAINT(S)
Left flank pain.
HISTORY OF PRESENT ILLNESS
The patient is an 78-year-old male with a history of recurrent kidney stones who presented with left flank pain that began around 2 a.m. The pain has since resolved. The patient experienced chills but denies fever, nausea, vomiting, chest pain,
shortness of breath, abdominal pain, or diarrhea. The patient mentions a tendency towards constipation, which they attribute to their regular state. A computed tomography (CT) scan has been completed, and the results are pending review. The patient
is awaiting urinalysis and intends to provide a urine sample shortly. The patient reports being under the care of a urologist named Dr. Quezada.
REVIEW OF SYSTEMS
- Gastrointestinal: Constipation, as per the patients normal state.
- Pulmonary: No shortness of breath.
- Cardiovascular: No chest pain.
- General: Experienced chills, no fever.
PHYSICAL EXAM
General: Alert, no acute distress.
Skin: Warm, dry.
Head: Normocephalic, atraumatic.
Neck: Supple, trachea midline.
Eye Ears, nose, mouth, and throat: Oral mucosa moist.
Cardiovascular: Normal peripheral perfusion, no edema.
Respiratory: Respirations are non-labored.
Gastrointestinal: Abdomen nondistended.
Back: Normal range of motion, normal alignment.
Musculoskeletal: Normal range of motion, normal strength.
Neurological: Alert and oriented to person, place, time, and situation, no focal neurological deficit observed.
Psychiatric: Cooperative, appropriate mood and affect.
PROBLEM LIST
- Acute flank pain, resolved.
PLAN
1. Await results of the CT scan and urinalysis.
2. Continue follow-up with urologist Dr. Quezada for management of recurrent kidney stones.
DIFFERENTIAL DIAGNOSIS
The Differential Diagnosis includes, in no particular order and is not limited to:
1. Nephrolithiasis (Kidney stones)
2. Pyelonephritis
3. Renal colic
4. Urinary tract infection
5. Musculoskeletal pain
6. Gastroenteritis
7. Diverticulitis
8. Abdominal aortic aneurysm
9. Biliary colic
10. Constipation-related discomfort
Disposition:
SUMMARY OF ENCOUNTER
The patient, an 78-year-old male with a history of recurrent kidney stones, presented with left flank pain that began around 2 a.m., accompanied by chills but no fever. The pain resolved prior to evaluation. A CT scan was completed, revealing
bilateral kidney stones. The patient is under the care of Dr. Quezada, a urologist, and is awaiting urinalysis results.
DISPOSITION
Admit.
MANAGEMENT OF THE PATIENTS CARE WAS DISCUSSED WITH
Dr. Myers, who reviewed the CT scan findings and requested hospital admission for the patient to the hospitalist service. The patient will require surgical intervention, and the hospitalist has been informed and agrees with the plan.
PLAN
1. Admit the patient to the hospitalist service for further evaluation and management of bilateral kidney stones. 2. Surgical intervention planned as discussed with Dr. Myers.
INDEPENDENT REVIEW OF LABS AND INTERPRETATION OF TESTS
My independent review of the CT scan indicates bilateral kidney stones.
FOLLOW-UP INSTRUCTIONS
Continue follow-up with urologist Dr. Quezada for long-term management of kidney stones after hospitalization.
MEDICAL DECISION MAKING
-Complexity of Data Reviewed: Chronic conditions affecting care include recurrent kidney stones. Differential diagnosis includes nephrolithiasis, pyelonephritis, renal colic, urinary tract infection, musculoskeletal pain, gastroenteritis,
diverticulitis, abdominal aortic aneurysm, biliary colic, and constipation-related discomfort.
-Data:
Category 1: Review of the CT scan showing bilateral kidney stones. Urinalysis pending.
Category 3: Discussion of management with Dr. Myers and the hospitalist regarding surgical intervention and hospital admission.
DIAGNOSIS
Bilateral kidney stones (ICD-10-CM code N20.0).
Past History
Past History
ED Past Medical History: HTN, Other (Kidney stones, BPH) and Other (Gastric ulcers, obstructive sleep apnea)
ED Past Surgical History: Urological and Other (Hemigastrectomy)
Social History
Tobacco: Non-smoker
Alcohol: Occasional
Personal:
Living: with family
Employment: Retired
Family History
Family History: Other (Noncontributory)
Phy Exam
Physical Exam
Physical Exam:
Patient asymptomatic after pain medications. Resting comfortably.
Physical Exam
Vital signs and allergy list reviewed and agreed with.
GENERAL: Alert , in no apparent distress at time of exam after pain medicines administered. Initially he was in severe pain
EYE: pupils equal, EOMI, anicteric
NECK: Supple, no significant adenopathy. No masses. Trachea midline
ENT: Oropharynx is clear, mmm.
CARDIAC: Regular rate and rhythm . No M/R/G
LUNGS: Clear breath sounds bilaterally, no acute respiratory distress, no wheezes/rales/rhonchi
ABDOMEN: Soft, without focal tenderness,
NEUROLOGICAL: Alert and oriented, no focal neuro deficits
SKIN: Warm and dry, skin intact.
MUSCULOSKELETAL: No edema, well perfused. Moves all 4 extremities
PSYCH: Normal and appropriate interaction.
Course
Orders/Labs/Results
Orders:
Orders
10/11/24 03:25
Complete Blood Count/With Diff Urgent
Comprehensive Metabolic Panel Urgent
10/11/24 03:33
CT Abd/pel Without Iv Or Oral Urgent
Comment:
Reason For Exam: l flank pain
0.9% Sodium Chloride 1000 ml [Nss] 1,000 ml IV BOLUS
Ketorolac [Toradol] 15 mg IV NOW STA
Morphine Sulfate 4 mg IV NOW STA
Ondansetron Injectable [Zofran] 4 mg IV NOW STA
10/11/24 04:43
Urine Microscopic Reflex Cult Urgent
Urine Reflex Culture from UA [Urinalysis Reflex To Culture] Urgent
Date Specimen was Collected: 10/11/24
Time Specimen was Collected: 03:19
Urine Culture Urgent
WU Source: U
Specimen Description:
Date Specimen was Collected: 10/11/24
Time Specimen was Collected: 03:19
10/11/24 05:49
Admit/Transfer Patient As Directed
Co-Sign Provider:
Level of Care: Inpatient admission
Assign to:: Telemetry
Physician / Group: Jovani
Diagnosis: Bilateral Ureteral Stones, ELIZABETH
Reason for Telemetry: Arrhythmia
Date to Stop Telemetry: 10/14/24
Time to Stop Telemetry: 11:00
Reason for Hospitalization: Bilateral Ureteral Stones, ELIZABETH
Expected length of stay greater than two midnights?: Yes
ELOS- Estimated Length of Stay in days: 3
I certify the patient meets the requirements for IP care: Yes
PRN Pain Medication Management As Directed
May give lesser potent ordered pain med per pt: Yes
preference::
Protocol:: Medication orders for pain may be administered in a
manner that supports deferring to patient preference
when the pt is:
- Requesting an ordered lesser potent pain medication.
Least to most potent pain medications are defined
as: acetaminophen < NSAID < tramadol < opioids
(morphine, oxycodone, hydromorphone).
- Requesting a lesser dose of the same medication IF
ORDERED.
- Requesting a less intrusive route of administration
if both routes are prescribed by the provider (PO <
IV).
10/11/24 05:50
Code Status As Directed
Resuscitation Status: Full Code
08/26/25 11:00
DC Protocol for Telemetry ONCE
Abnormal Lab Results
10/11/24 10/11/24
03:25 04:43
RBC 4.63 L 10^6/uL
(4.70-6.10)
Absolute Monos (auto) 0.8 H 10^3/uL
(0.1-0.6)
Chloride 109 H mmol/L
(98-107)
BUN 31 H mg/dl
(9-20)
Creatinine 1.4 H mg/dL
(0.7-1.3)
Glucose 121 H mg/dl
(70-99)
Alkaline Phosphatase 132 H U/L
(38-126)
Total Protein 6.0 L g/dl
(6.3-8.2)
Ur Occult Blood Reflex 4+ A
(Negative)
Urine RBC 60-70 A /HPF
(0-2)
Urine Bacteria (Reflex) Moderate A
(Negative)
Urine Albumin (Reflex) 2+ A
(Neg - Trace)
10/11/24 03:25
10/11/24 03:25
Vital Signs
Initial and Last Documented VS:
Initial Vital Signs
Temp Pulse Resp BP Pulse Ox
98.6 F 58 18 160/77 98
10/11/24 03:10 10/11/24 03:10 10/11/24 03:10 10/11/24 03:10 10/11/24 03:10
Last Documented Vital Signs
Temp Pulse Resp BP Pulse Ox
98.6 F 57 14 116/61 93
10/11/24 03:10 10/11/24 06:45 10/11/24 06:45 10/11/24 06:07 10/11/24 06:45
*Pulse Oximetry
SaO2: 98
Oxygen Mode of Delivery: Room air
Patient hypoxic: no
*Critical Care Note
Total Time (30-74mins, 75-104mins- exclusive of procedures): Not Applicable
ED Attending Note
-
Portions of this chart may have been created with voice recognition software.� Occasional wrong word or��sound alike� substitutions may have occurred due to the inherent limitations of voice recognition software.
Discharge Plan
Interventions
Interventions:
*Risk Screen - Suicide Last Done: 10/11/24 03:10
*General Assessment Last Done: 10/11/24 03:10
*Neglect/Abuse Screening Last Done: 10/11/24 03:10
*ED- Fall Risk Assessment Last Done: 10/11/24 03:56
*ED COVID-19 Vaccine History Last Done: 10/11/24 03:56
OM-Lxgjww-Lkkmekybwe Assessment Last Done: 10/11/24 03:27
ED-Male Genitourinary Assessment Last Done: 10/11/24 03:27
--- NOTE | 2024-10-11 05:52 | HPS.HSE ---
Family Physician
-
Family Physician: Ja Stephens
Chief Complaint
-
Flank Pain
History of Present Illness
Patient is an 78y M with PMH significant for nephrolithiasis, hypertension and BPH who presents to ED complaining of L flank pain. Patient states that he noted L flank discomfort when he woke to urinate around 2 AM. he has had similar pain
before and knows that it typically escalates quickly. He presented to the ED for further evaluation. His pain did indeed increase in severity prior to his arrival here. He denies any associated N/V, diaphoresis, fevers / chills, etc. He felt
well last PM when going to bed.
Patient has prior history of kidney stones in the past requiring cysto / stent procedures, ureteral dilation, etc.
Medical History
Past Medical History
Past Medical History: Reports Other
Additional Past Medical History:
Nephrolithiasis
Hypertension
BPH
GERD / PUD
BPPV
Gout
Past Surgical History: Reports Other
Additional Past Surgical History:
Cysto / Stent / Lithotripsy
Ureteral Dilation
Billroth I / Gastrojejunostomy
Social History
Tobacco: Non-smoker
Alcohol: Occasional
Drug: None
Family History
Family History: Not pertinent
Allergies / Home Medications
Allergies reflects when Allergies were last updated in [facility].
Home Medications with original date entered in [facility]
Allergy/Medication List:
Allergies
Allergy/AdvReac Type Severity Reaction Status Date / Time
No Known Drug Allergies Allergy Unknown Verified 10/11/24 03:56
Home Medications
tamsulosin 0.4 mg capsule 0.4 mg PO DAILY Urinary Issue 11/19/22
amlodipine 5 mg tablet 5 mg PO DAILY Blood Pressure 10/05/23
atorvastatin 40 mg tablet 40 mg PO DAILY High Cholesterol 10/05/23
benazepril 10 mg tablet 10 mg PO DAILY Blood Pressure 10/05/23
finasteride 5 mg tablet 5 mg PO DAILY Urinary Issue 10/05/23
Review of Systems
-
History Source: Patient
A 12 point ROS was completed and negative except as noted: Yes
Constitutional: Denies Fever or Chills
Respiratory: Denies Cough or Trouble Breathing
Cardiac: Denies Chest Pain or Palpitations
Abdomen/GI: Denies Abdominal Pain, Nausea, Vomiting or Diarrhea
: Reports Flank Pain; Denies Dysuria or Bleeding
Musculoskeletal: Denies Joint Pain or Edema
Neurological: Denies Dizzy or Headache
Psych: Denies Depression or Anxiety
Physical Exam
Vital Signs
Vital Signs
Temp Pulse Resp BP Pulse Ox
98.6 F 64 18 140/63 98
10/11/24 03:10 10/11/24 04:48 10/11/24 04:48 10/11/24 04:48 10/11/24 05:38
Physical Exam
General: Other (78y M in no acute distress.)
HEENT: Moist mucous membranes and PERRLA
Respiratory: Clear; No Wheezes, Rales or Rhonchi
Cardiac: S1/S2, Regular Rhythm and Murmur (II/ SHAWN)
GI: Soft, Non Tender, Non Distended and Normal Bowel Sounds
Genito-urinary: No costovertebral tender
Musculoskeletal: No Clubbing, No Cyanosis and No Edema
Neuro: AO x 3
Laboratory Results
-
10/11/24 03:25
10/11/24 03:25
Laboratory Results
Total Bilirubin 0.5 mg/dl (0.2-1.3) 10/11/24 03:25
AST 23 U/L (17-59) 10/11/24 03:25
ALT 19 U/L (0-50) 10/11/24 03:25
Alkaline Phosphatase 132 U/L (38-126) H 10/11/24 03:25
Impression/Plan
-
A/P: Patient is an 78y M with PMH significant for kidney stones, hypertension and PUD who presents to ED complaining of L flank pain that started this evening.
Bilateral Ureteral Stones
Left Hydronephrosis / Perinephric Stranding
ELIZABETH
- Admit for further evaluation and treatment.
- CT done in the ED this evening shows 4.4mm L UVJ stone with moderate L hydro and perinephric stranding.
- Also 3.8 and 4.2 mm adjacent stones in the mid-right ureter with mild hydro. No stranding.
- Pain much improved after medication here in the ED.
- NPO, IVFs, IV abx for now. Pain control / antiemetics as needed.
- Continue tamsulosin.
- Urology consulted and for probable OR today.
- SCr = 1.4 compared to baseline of 1.0.
- Follow for improvement in renal function s/p stent placement / IVFs / etc.
Benign Hypertension
- Stable. Continue amlodipine with holding parameters.
- Hold benazepril acutely given ELIZABETH.
PUD / GERD
- s/p remote Billroth I procedure. No recent issues, heartburn, etc.
DVT Prophylaxis: SCDs
Code Status: Full
--- NOTE | 2024-10-11 07:09 | CON.MD ---
Consultation - Medical
-
see dictated note
pt with long hx of BPH and stones
last admit had right ureteral stone with stx and left renal mass
underwent ureteroscopy/stent and litho- had prolonged hematuria but no retention- stent removed
pt has had dull right flank pain for several weeks and then acute left renal colic today\\
cr up to 1.4
no evid of infx
ct shows prox right ureteral stone/distal left ureteral stone/sig BPH and left renal mass
plan
reviewed difficulties of case with patient and potential pitfalls and complications given sig bph/bilateral stone and hx of right ureteral stx
plan for OR today for at right ureteral stent and attempt at left ureteroscopy
risks reviewed including bleeding,retention and need for percs
Consultation
-
Date/Time Consultation Requested: 10/11/24 at 5:30am
Date/Time Consultation Performed: 10/11/24 at 7am
Requesting Provider: ER
Performing Provider: dR Cole
Reason for Consultation: stones
[2024-10-11] MEDS: ROCEPHIN 1000 MG IV (09:01)
[2024-10-11] MEDS: STERILE WATER FOR INJECTION 10 ML IV (09:02)
[2024-10-11] MEDS: NORVASC 5 MG PO (09:04)
[2024-10-11] MEDS: FLOMAX 0.4 MG PO ×2 (09:04→13:03)
[2024-10-11] MEDS: PROSCAR 5 MG PO (09:04)
--- NOTE | 2024-10-11 09:58 | CM ---
Reviewed the chart notes and spoke with the patient at the bedside. Patient anticipates going to OR today. Patient resides with spouse in a split level home with four steps to enter. The patient reports no DME/VN/SNF in the past. The patient
confirmed his pharmacy of choice [facility]. CM continues to be available to patient/family and is monitoring medical plan for needs at discharge.
Plan: Discharge plans will depend on the patient's progress.
--- NOTE | 2024-10-11 11:34 | W.IMMPOSTOP ---
Surgical Immed Post Op Note
-
Primary Surgeon:
lexx
Assisting Surgeon:
Pre-op Diagnosis:
bilateral ureteral stones/bph/ureteral stricture
Post-op Diagnosis:
same
Procedure Performed:
cysto, right ureteral stent, left ureteroscopy/laser litho and stent/prostate fulguration
Anesthesia Type:
gen
Specimen / Cultures:
none
Estimated Blood Loss:
2cc
Complications:
none
Operative Findings:
bph- large median lobe- UO's somewhat difficult to find
right ureteral stent placed without difficulty
left ureteroscopy/laser litho/stent performed on left
small bleeding point on prostate fulgurated
regular diet
pyridium
double flomax
observe for hematuria/retention/renal function
if stable- can d/c tomorrow for outpt follow up
--- NOTE | 2024-10-11 11:39 | W.PN.HOSP.TC ---
Today's Communication/Plan
-
OR today
Assessment / Plan
Assessment / Plan
Impression:
Patient is an 78y M with PMH significant for nephrolithiasis, hypertension and BPH who presents to ED complaining of L flank pain. Patient states that he noted L flank discomfort when he woke to urinate around 2 AM. he has had similar pain
before and knows that it typically escalates quickly. He presented to the ED for further evaluation. His pain did indeed increase in severity prior to his arrival here. He denies any associated N/V, diaphoresis, fevers / chills, etc. He felt
well last PM when going to bed.
Patient has prior history of kidney stones in the past requiring cysto / stent procedures, ureteral dilation.
CT done in the ED this evening shows 4.4mm L UVJ stone with moderate L hydro and perinephric stranding.
PT consulted and plan for OR.
Assessment/plan:
Bilateral Ureteral Stones
Left Hydronephrosis / Perinephric Stranding
ELIZABETH
- Admit for further evaluation and treatment.
- CT done in the ED this evening shows 4.4mm L UVJ stone with moderate L hydro and perinephric stranding.
- Also 3.8 and 4.2 mm adjacent stones in the mid-right ureter with mild hydro. No stranding.
- Pain much improved after medication here in the ED.
- kept NPO for OR, IVFs, IV abx for now. Pain control / antiemetics as needed.
- Continue tamsulosin.
- Urology consulted and for probable OR today.
- SCr = 1.4 compared to baseline of 1.0.
- Follow for improvement in renal function s/p stent placement / IVFs / etc.
Benign Hypertension
- Stable. Continue amlodipine with holding parameters.
- Hold benazepril acutely given ELIZABETH.
PUD / GERD
- s/p remote Billroth I procedure. No recent issues, heartburn, etc.
CODE STATUS: Full code
DVT prophylaxis: SCDs
Diet: Regular diet
Family communication: at bedside
Disposition: OR today
Total time spent on today's encounter was 65 minutes which included time spent in counseling the patient/family regarding diagnosis and treatment plan as listed above, goals of care, and symptom management. Case was discussed with nursing staff,
specialists, and care coordinators/case management. All labs and imaging personally reviewed by me. Remainder the time spent in detailed review of previous records, lab data, imaging, and other medical provider documentation.
Anticipated Discharge: 24 - 48 hours
Subjective/Interval History
-
Date of Service: October 11, 2024
Patient seen and examined at bedside, denies any chest pain or shortness of breath, no abdominal pain, no nausea, no vomiting, no diarrhea or constipation.
for OR today.
Objective Data
-
Labs:
Laboratory Results
10/11/24
03:25
WBC 9.0
Hgb 13.8
Hct 40.9
Plt Count 142
Sodium 140
Potassium 4.4
Chloride 109 H
Carbon Dioxide 25
BUN 31 H
Creatinine 1.4 H
Glucose 121 H
Calcium 9.8
Total Bilirubin 0.5
AST 23
ALT 19
Alkaline Phosphatase 132 H
Vital Signs:
Vital Signs
Temp Pulse Resp BP Pulse Ox
97.6 F 73 15 129/57 99
10/11/24 11:25 10/11/24 11:30 10/11/24 11:30 10/11/24 11:30 10/11/24 11:30
Physical Exam
-
General: Well Developed, Well Nourished, No Apparent Distress and Comfortable
HEENT: Normocephalic, Atraumatic, Moist Mucous Membranes, No Ptosis, PERRLA and Nose Appears Normal
Respiratory: Clear to Auscultation and Non Labored Respirations
Cardiac: Regular Rhythm and S1/S2
Breast: Deferred by me
GI: Soft, Nontender, Nondistended and Normal Bowel Sounds
Genito-urinary: No Costovertebral Tender
Musculoskeletal: No Clubbing, No Cyanosis and No Edema
Skin: Warm
Neuro: Awake, Alert, Oriented, AO x 3 and No Motor Deficits
Psych: Calm
Data Reviewed
-
Diagnostic Radiology: Image personally visualized and interpreted and Report Reviewed by me
CT Scan: Image personally visualized and interpreted and Report Reviewed by me
Ultrasound: Image personally visualized and interpreted and Report Reviewed by me
MRI: Image personally visualized and interpreted and Report Reviewed by me
Medical Tests (Nuc Med, Echo etc): Image personally visualized and interpreted and Report Reviewed by me
Labs: Labs Reviewed by me
Old Records: Reviewed
--- NOTE | 2024-10-11 12:12 | PTCARENOTE ---
pt admitted to 2S room 2101 from the ED @0700. pt oriented to room and plan of care with verbalized understanding. NPO except meds provided this am per MAR. IVF infusing. pt educated regarding surgery this am and verbalized understanding.
Pt sent to OR holding via bed at 1017.
Pt returned to room 2101 @1200. family at bedside. urinal provided. pt tolerating sips of water and offers no c/o. care ongoing.
[2024-10-11] MEDS: COLACE 100 MG PO (22:41)
[2024-10-11] MEDS: SENOKOT 8.6 MG PO (22:41)
[2024-10-12 03:00] VITALS: BP 132/63
[2024-10-12 07:05] LABS: Hematocrit 34.6 % (39.0-52.0); Hemoglobin 11.6 g/dL (13.0-18.0); Mean Corp Hgb Conc. 33.5 g/dL (33.0-37.0); Mean Corpuscular Volume 88.3 fL (80.0-94.0); Platelet Count 128 10^3/uL (130-400); Red Cell Dist. Width 14.5 % (11.5-14.5)
[2024-10-12 07:27] LABS: Blood Urea Nitrogen 22 mg/dl (9-20); Calcium 9.0 mg/dl (8.4-10.2); Carbon Dioxide 24 mmol/L (22-30); Chloride 112 mmol/L (98-107); Estimated Creatinine Clearance 53 ml/min; Glucose 114 mg/dl (70-99); Potassium 4.7 mmol/L (3.5-5.1); Sodium 137 mmol/L (135-145); eGFR > 60.00
--- NOTE | 2024-10-12 07:38 | W.PN.URO.CBU ---
Today's Communication / Plan
-
discharge
Assessment / Plan
-
bilateral ureteral stone
BPH
hx of noted right ureteral stx
s/p right ureteral stent and left ureteroscopy/laser litho and stent
pt doing well
reviewed discharge instructions and plan
pt to call to [facility] f/u
Diagnosis
-
Date of Service: October 12, 2024
-
Patient Diagnosis:
bilateral ureteral stones
BPH
Post Op Day:
1 right ureteal stent/left ureteroscopy/laser litho and stent
Subjective
-
pt feels good
no trouble urinating and no sig hematuria
labs normalized
Objective
-
Vital Signs
Temp Pulse Resp BP Pulse Ox
97.8 F 66 16 132/63 96
10/12/24 03:00 10/12/24 03:00 10/12/24 03:00 10/12/24 03:00 10/12/24 03:00
Intake and Output
10/11/24 10/12/24 10/13/24
06:59 06:59 06:59
Intake Total 690 / 690 1440 / 1440
Output Total 125 / 125 400 / 400
Balance 565 / 565 1040 / 1040
Intake:
Oral fluids 480 / 480
IV fluids (Total) 690 / 690 960 / 960
normosol 50 / 50
Output:
Urine, Voided 125 / 125 400 / 400
Other:
Number of approximated MODERATE 1
amounts of urine
Laboratory Results
10/12/24 06:45
10/12/24 06:45
Review of Systems
-
Constitutional: No Symptoms
Respiratory: No Symptoms
Cardiac: No Symptoms
Abdomen/GI: No Symptoms
: Frequency
Physical Exam
-
General - no acute distress
[2024-10-12] MEDS: COLACE 100 MG PO (07:48)
[2024-10-12] MEDS: NORVASC 5 MG PO (07:48)
[2024-10-12] MEDS: SENOKOT 8.6 MG PO (07:48)
[2024-10-12] MEDS: PROSCAR 5 MG PO (07:50)
[2024-10-12] MEDS: FLOMAX 0.8 MG PO (07:50)
[2024-10-12] MEDS: STERILE WATER FOR INJECTION 10 ML IV (07:51)
[2024-10-12] MEDS: ROCEPHIN 1000 MG IV (07:52)
[2024-10-12 08:00] VITALS: BP 123/61
--- NOTE | 2024-10-12 09:07 | CM ---
Reviewed the chart notes. Patient for discharge to home today. No needs.
--- NOTE | 2024-10-12 09:29 | W.PN.HOSP.TC ---
Today's Communication/Plan
-
DC home today
Assessment / Plan
Assessment / Plan
Impression:
Patient is an 78y M with PMH significant for nephrolithiasis, hypertension and BPH who presents to ED complaining of L flank pain. Patient states that he noted L flank discomfort when he woke to urinate around 2 AM. he has had similar pain
before and knows that it typically escalates quickly. He presented to the ED for further evaluation. His pain did indeed increase in severity prior to his arrival here. He denies any associated N/V, diaphoresis, fevers / chills, etc. He felt
well last PM when going to bed.
Patient has prior history of kidney stones in the past requiring cysto / stent procedures, ureteral dilation.
CT done in the ED this evening shows 4.4mm L UVJ stone with moderate L hydro and perinephric stranding.
PT consulted and plan for OR.
Assessment/plan:
Bilateral Ureteral Stones s/p right ureteral stent and left ureteroscopy/laser litho and stent
Left Hydronephrosis / Perinephric Stranding
ELIZABETH
- Admit for further evaluation and treatment.
- CT done in the ED this evening shows 4.4mm L UVJ stone with moderate L hydro and perinephric stranding.
- Also 3.8 and 4.2 mm adjacent stones in the mid-right ureter with mild hydro. No stranding.
- Pain much improved after medication here in the ED.
- kept NPO for OR, IVFs, IV abx for now. Pain control / antiemetics as needed.
- Continue tamsulosin.
- Urology consulted and for probable OR today.
- SCr = 1.4 compared to baseline of 1.0.
- Follow for improvement in renal function s/p stent placement / IVFs / etc.
10/12
Discharge home today
Benign Hypertension
- Stable. Continue amlodipine with holding parameters.
- Hold benazepril acutely given ELIZABETH.
PUD / GERD
- s/p remote Billroth I procedure. No recent issues, heartburn, etc.
CODE STATUS: Full code
DVT prophylaxis: SCDs
Diet: Regular diet
Family communication: at bedside
Disposition: DC home today
Total time spent on today's encounter was 65 minutes which included time spent in counseling the patient/family regarding diagnosis and treatment plan as listed above, goals of care, and symptom management. Case was discussed with nursing staff,
specialists, and care coordinators/case management. All labs and imaging personally reviewed by me. Remainder the time spent in detailed review of previous records, lab data, imaging, and other medical provider documentation.
Anticipated Discharge: Today
Subjective/Interval History
-
Date of Service: October 12, 2024
Patient seen and examined at bedside, denies any chest pain or shortness of breath, no abdominal pain, no nausea, no vomiting, no diarrhea or constipation.
Objective Data
-
Labs:
Laboratory Results
10/12/24
06:45
WBC 9.7
Hgb 11.6 L
Hct 34.6 L
Plt Count 128 L
Sodium 137
Potassium 4.7
Chloride 112 H
Carbon Dioxide 24
BUN 22 H
Creatinine 1.1
Glucose 114 H
Calcium 9.0
Vital Signs:
Vital Signs
Temp Pulse Resp BP Pulse Ox
98.7 F 63 18 123/61 95
10/12/24 08:00 10/12/24 08:00 10/12/24 08:00 10/12/24 08:00 10/12/24 09:18
I&O
10/11/24 10/12/24 10/13/24
06:59 06:59 06:59
Intake Total 690 / 690 1440 / 1440
Output Total 125 / 125 400 / 400
Balance 565 / 565 1040 / 1040
Physical Exam
-
General: Well Developed, Well Nourished, No Apparent Distress and Comfortable
HEENT: Normocephalic, Atraumatic, Moist Mucous Membranes, No Ptosis, PERRLA and Nose Appears Normal
Respiratory: Clear to Auscultation and Non Labored Respirations
Cardiac: Regular Rhythm and S1/S2
Breast: Deferred by me
GI: Soft, Nontender, Nondistended and Normal Bowel Sounds
Genito-urinary: No Costovertebral Tender
Musculoskeletal: No Clubbing, No Cyanosis and No Edema
Skin: Warm
Neuro: Awake, Alert, Oriented, AO x 3 and No Motor Deficits
Psych: Calm
--- NOTE | 2024-10-12 09:31 | W.DCSUMMARY ---
Discharge Summary
Discharge Data
Date of Admission: 10/11/24
Date of Discharge: 10/12/24
Total time spent discharging patient (in min): 40
-
Pending Results: No
Hospital Course
Hospital course
Patient is an 78y M with PMH significant for nephrolithiasis, hypertension and BPH who presents to ED complaining of L flank pain. Patient states that he noted L flank discomfort when he woke to urinate around 2 AM. he has had similar pain
before and knows that it typically escalates quickly. He presented to the ED for further evaluation. His pain did indeed increase in severity prior to his arrival here. He denies any associated N/V, diaphoresis, fevers / chills, etc. He felt
well last PM when going to bed.
Patient has prior history of kidney stones in the past requiring cysto / stent procedures, ureteral dilation.
CT done in the ED this evening shows 4.4mm L UVJ stone with moderate L hydro and perinephric stranding.
Urology consulted s/p right ureteral stent and left ureteroscopy/laser litho and stent .
During hospitalization patient was treated from the following
Bilateral Ureteral Stones s/p right ureteral stent and left ureteroscopy/laser litho and stent
Left Hydronephrosis / Perinephric Stranding
ELIZABETH
- Admit for further evaluation and treatment.
- CT done in the ED this evening shows 4.4mm L UVJ stone with moderate L hydro and perinephric stranding.
- Also 3.8 and 4.2 mm adjacent stones in the mid-right ureter with mild hydro. No stranding.
- Pain much improved after medication here in the ED.
- kept NPO for OR, IVFs, IV abx for now. Pain control / antiemetics as needed.
- Continue tamsulosin.
- Urology consulted and for probable OR today.
- SCr = 1.4 compared to baseline of 1.0.
- Follow for improvement in renal function s/p stent placement / IVFs / etc.
10/12
Discharge home today
Benign Hypertension
- Stable. Continue amlodipine with holding parameters.
- Hold benazepril acutely given ELIZABETH.
PUD / GERD
- s/p remote Billroth I procedure. No recent issues, heartburn, etc.
CODE STATUS: Full code
DVT prophylaxis: SCDs
Diet: Regular diet
Family communication: at bedside
Disposition: DC home today
Total time spent on today's encounter was 40 minutes which included time spent in counseling the patient/family regarding diagnosis and treatment plan as listed above, goals of care, and symptom management. Case was discussed with nursing staff,
specialists, and care coordinators/case management. All labs and imaging personally reviewed by me. Remainder the time spent in detailed review of previous records, lab data, imaging, and other medical provider documentation.
Anticipated Discharge: Today
Discharge Plan
-
Patient Disposition: Home (Routine Discharge)
Discharge Diagnosis/Procedures: you had a right ureteral stent placed and left ureteroscopy/stone removal and stent
Condition: Fair
Diet: No restrictions
Activity: No restrictions
Driving Restrictions: As prior to admission
Bathing Restrictions: OK to Shower
Wound Care: expect blood in urine, urinary urgency and frequency and some pain with urination
Referrals:
Mark Rowland MD [Active, Urology]
Referral Note: call on sunday to schedule follow up appointment
Ja Stephens MD [Family Provider, Family Practice]
Additional Discharge Medication Instructions: until stents removed- take your flomax twice a day
Prescriptions:
New
tamsulosin 0.4 mg capsule
0.4 mg PO BID Qty: 60 0RF
phenazopyridine [Pyridium] 100 mg tablet
100 mg PO BID Qty: 60 0RF
tramadol 50 mg tablet
50 mg PO Q8H PRN (Reason: Pain) Qty: 20 0RF
Continued
atorvastatin 40 mg Tablet
40 mg PO DAILY
amlodipine 5 mg Tablet
5 mg PO DAILY
benazepril 10 mg Tablet
10 mg PO DAILY
finasteride 5 mg Tablet
5 mg PO DAILY
Discontinued
tamsulosin 0.4 mg Capsule
0.4 mg PO DAILY
Discharge Orders:
Discharge Patient (As Directed); Ordered 10/12/24
Ordered By: Avtar Baldwin Jr.
Discharge Date and Time
Print Language: ITALIAN
== END 2024-10-12 10:00 | disposition home or self-care (01) | DRG 660 ==
LOC: 2 SOUTH 06:02
PROVIDERS: ADMITTING PHYSICIAN Hospitalist; ATTENDING PHYSICIAN General Practice; CONSULT PHYSICIAN Specialist; EMERGENCY PHYSICIAN Student in an Organized Health Care Education/Training Program; FAMILY PHYSICIAN Family Medicine
PROC: 0V508ZZ Destruction of Prostate, Via Natural or Artificial Opening Endoscopic (ICD-10-PCS; 2024-10-11)
PROC: 0TC78ZZ Extirpation of Matter from Left Ureter, Via Natural or Artificial Opening Endoscopic (ICD-10-PCS; 2024-10-11)
PROC: 0T788DZ Dilation of Bilateral Ureters with Intraluminal Device, Via Natural or Artificial Opening Endoscopic (ICD-10-PCS; 2024-10-11)
DX: N20.2 Calculus of kidney with calculus of ureter (principal); N17.9 Acute kidney failure, unspecified; I10 Essential (primary) hypertension; Z87.442 Personal history of urinary calculi; N40.0 Benign prostatic hyperplasia without lower urinary tract symptoms; K21.9 Gastro-esophageal reflux disease without esophagitis; Z87.11 Personal history of peptic ulcer disease; G47.33 Obstructive sleep apnea (adult) (pediatric)
CPT/HCPCS: 74018; 74176; 76000; 80048; 80053; 81003; 81015; 85025; 85027; 87086; 96361; 96374; 96375; 99285; C2617

== ENCOUNTER 2024-10-14 07:09 | Emergency (ER) | payer OTHER, SELFPAY ==
[2024-10-14 07:10] VITALS: BP 150/65
--- NOTE | 2024-10-14 07:31 | ED.GENMED ---
History of Present Illness
General
Chief Complaint: Bowel Problem
Source: patient
Exam Limitations: none
Time Seen by Provider: 10/14/24 07:17
Nursing documentation reviewed up to this point in time: agreed with
History of Present Illness
History of Present Illness:
Patient is 79-year-old male presents to the ER for evaluation of constipation. Patient reports he last moved his bowels 6 days ago. He has been taking stool softeners and laxatives without relief. He typically moves his bowels every 3 days. He
denies any nausea or vomiting. He does report that he was here over the weekend for kidney stones. Patient had bilateral ureteral stones and had bilateral stents and was admitted 10/14 and discharged 2 days ago.
Past History
Past History
ED Past Medical History: HTN, Other (Kidney stones, BPH) and Other (Gastric ulcers, obstructive sleep apnea)
ED Past Surgical History: Urological and Other (Hemigastrectomy)
Social History
Tobacco: Non-smoker
Alcohol: Occasional
Personal:
Living: with family
Employment: Retired
Family History
Family History: Other (Noncontributory)
Phy Exam
General Physical Exam
General Presentation: no apparent distress
General age: appears stated age
General Skin: warm and dry
General Habitus: normal
General Mental: alert
General Hydration: appears well hydrated
Gastrointestinal Exam
Gastrointestinal Exam: non tender, soft and other (no stool in rectum)
Musculoskeletal Exam
Musculoskeletal Exam: full ROM
Skin Exam
Skin Exam: normal color and warm/dry
Psychiatric Exam
Psychiatric Exam: normal mood/affect
Course
Orders/Labs/Results
Orders:
Orders
10/14/24 07:30
Obstruct Series W/PA Chest [CR Obstruct Series W/pa Chest] Urgent
Comment:
Reason For Exam: constipation
10/14/24 07:35
IV Insert/Care/Rem.- Treatment PRN
10/14/24 07:44
Complete Blood Count/With Diff Urgent
10/14/24 07:45
Comprehensive Metabolic Panel Urgent
10/14/24 08:53
Enema- Treatment ONCE
Type: Milk of Molasses
Amount: x1
Abnormal Lab Results
10/14/24 10/14/24
07:44 07:45
RBC 4.05 L 10^6/uL
(4.70-6.10)
Hgb 12.3 L g/dL
(13.0-18.0)
Hct 36.6 L %
(39.0-52.0)
Absolute Monos (auto) 0.7 H 10^3/uL
(0.1-0.6)
Monocytes % 9.8 H %
(1.7-9.3)
Chloride 109 H mmol/L
(98-107)
Total Protein 5.2 L g/dl
(6.3-8.2)
Albumin 3.1 L g/dl
(3.5-5.0)
10/14/24 07:44
10/14/24 07:45
Vital Signs
Initial and Last Documented VS:
Initial Vital Signs
Temp Pulse Resp BP Pulse Ox
97.5 F 57 18 150/65 98
10/14/24 07:10 10/14/24 07:10 10/14/24 07:10 10/14/24 07:10 10/14/24 07:10
Last Documented Vital Signs
Temp Pulse Resp BP Pulse Ox
97.5 F 53 16 132/63 95
10/14/24 07:10 10/14/24 08:24 10/14/24 08:24 10/14/24 08:24 10/14/24 08:24
MDM/Problems Addressed
Differential Diagnosis Includes:
Not limited by obstruction, constipation
MDM/Problems Addressed:
Patient is an 79-year-old male that complains of constipation. Patient was recently here for bilateral ureteral stents and has had constipation for the past 6 days. He denies any actual abdominal pain nausea vomiting. Abdomen soft on exam he has
nontender positive bowel sounds rectal exam done no stool in rectum. He is in no acute distress denies any fever chills afebrile with a normal white count, stable labs including normal chemistries.
x-ray done does show constipation but no obstruction.
He has no complaints regarding the ureteral stents.
Milk of mollases enema was given with success.
Will have patient continue on stool softeners and MiraLAX
*Radiology
Radiology exam reviewed: radiology read reviewed
*Pulse Oximetry
SaO2: 98
Oxygen Mode of Delivery: Room air
Patient hypoxic: no
*Critical Care Note
Total Time (30-74mins, 75-104mins- exclusive of procedures): Not Applicable
ED Attending Note
-
Portions of this chart may have been created with voice recognition software.� Occasional wrong word or��sound alike� substitutions may have occurred due to the inherent limitations of voice recognition software.
Discharge Plan
Departure
Patient Disposition: Home (Routine Discharge)
Date of Disposition: 10/14/24
Time of Disposition: 09:30
Patient with high blood pressure during this ER visit?: Yes
Condition: Fair
Covid-19: Not Applicable
Discharge Problem:
Constipation
Instructions: Constipation, Adult (DC), BLOOD PRESSURE
Prescriptions:
No Action
atorvastatin 40 mg Tablet
40 mg PO DAILY
amlodipine 5 mg Tablet
5 mg PO DAILY
benazepril 10 mg Tablet
10 mg PO DAILY
finasteride 5 mg Tablet
5 mg PO DAILY
tamsulosin 0.4 mg capsule
0.4 mg PO BID Qty: 60 0RF
phenazopyridine [Pyridium] 100 mg tablet
100 mg PO BID Qty: 60 0RF
tramadol 50 mg tablet
50 mg PO Q8H PRN (Reason: Pain) Qty: 20 0RF
Referrals:
Ja Stephens MD [Family Provider, Family Practice]
Activity Restrictions/Additional Instructions:
As discussed continue MiraLAX and stool softener. Be sure to increase water intake. Increase diet high in fiber fiber, fresh fruits and vegetables. Follow-up with your family doctor in the next several days.
return if any worsening of symptoms.
Interventions
Interventions:
*Risk Screen - Suicide Last Done: 10/14/24 07:10
*General Assessment Last Done: 10/14/24 07:10
*Neglect/Abuse Screening Last Done: 10/14/24 07:10
*ED- Fall Risk Assessment Last Done: 10/14/24 07:23
*ED COVID-19 Vaccine History Last Done: 10/14/24 07:23
*Nursing Disposition Last Done: 10/14/24 09:39
LA-Mglziy-Qqzgsjtacy Assessment Last Done: 10/14/24 07:23
Discharge Date and Time
Discharge Date/Time: 10/14/24 09:40
Print Language: BRUNEIAN
[2024-10-14 08:14] LABS: Hematocrit 36.6 % (39.0-52.0); Hemoglobin 12.3 g/dL (13.0-18.0); Mean Corp Hgb Conc. 33.6 g/dL (33.0-37.0); Mean Corpuscular Volume 90.4 fL (80.0-94.0); Nucleated Red Blood Cells % 0 % (-); Platelet Count 131 10^3/uL (130-400); Red Cell Dist. Width 14.3 % (11.5-14.5)
[2024-10-14 08:24] VITALS: BP 132/63
[2024-10-14 08:42] LABS: ALT (SGPT) 19 U/L (0-50); AST (SGOT) 24 U/L (17-59); Albumin 3.1 g/dl (3.5-5.0); Alkaline Phosphatase 99 U/L (38-126); Blood Urea Nitrogen 20 mg/dl (9-20); Calcium 8.9 mg/dl (8.4-10.2); Carbon Dioxide 29 mmol/L (22-30); Chloride 109 mmol/L (98-107); Glucose 89 mg/dl (70-99); Potassium 4.3 mmol/L (3.5-5.1); Sodium 139 mmol/L (135-145); Total Protein 5.2 g/dl (6.3-8.2); eGFR > 60.00
== END 2024-10-14 09:40 | disposition home or self-care (01) ==
LOC: EMR 07:09
PROVIDERS: Nurse Practitioner; EMERGENCY PHYSICIAN Emergency Medicine; FAMILY PHYSICIAN Family Medicine
DX: K59.00 Constipation, unspecified (principal); I10 Essential (primary) hypertension; G47.33 Obstructive sleep apnea (adult) (pediatric); N40.0 Benign prostatic hyperplasia without lower urinary tract symptoms
CPT/HCPCS: 99284; 74022; 80053; 85025

== ENCOUNTER 2024-11-11 06:15 | Day surgery (SDC) | payer OTHER, SELFPAY ==
[2024-11-11] VITALS (15 sets, daily range): BP systolic 106–133; BP diastolic 54–80; BMI 24.4
[2024-11-11] MEDS: NORMOSOL-R/PLASMALYTE-A 1000 IV (08:55)
--- NOTE | 2024-11-11 13:01 | W.PN.URO.CBU ---
Today's Communication / Plan
-
cbi hand irrigate ponce prn no or slow flow or major clots
Assessment / Plan
-
s/p turp laser will continue cbi iv abs analgesics
Diagnosis
-
Date of Service: November 11, 2024
-
Patient Diagnosis:bph rt ureteral stones left sten t now s/p turp asn laser rt stones removal left stent and exchange rt jj stent
Post Op Day:
Subjective
-
sleepy mild hematuia
Objective
-
Vital Signs
Temp Pulse Resp BP Pulse Ox
98.5 F 77 12 132/64 97
11/11/24 08:42 11/11/24 08:42 11/11/24 08:42 11/11/24 08:42 11/11/24 08:42
Review of Systems
-
: Difficulty Voiding and Bleeding
Physical Exam
-
General - well developed, well nourished, no acute distress
Chest - clear bilaterally
Abdomen - soft, non-tender, positive bowel sounds, no CVAT, no incisional pain or distention
Genitalia - normal
Rectal - normal
Skin - warm & dry with no rash
Neuro - AOx3, no motor deficits
Extremities - no clubbing, no cyanosis, no edema
Incision - clean, dry
Dressing - clean, dry, intact
Care Review
Data Reviewed
Discussed with: Nursing and Family
--- NOTE | 2024-11-11 13:04 | W.SUR.POST ---
Surgical Immediate Post Op
Note
Pre Op Diagnosis: bph rt ureteral stones and bilateral jj stents
Post Op Diagnosis: same
Procedure Performed:
turp , rt ureteroscopy and laser stones x 2 rt jj stent exchange left jj stent removal
Primary Surgeon:
flashner
Secondary Surgeons:
Anesthesia:genereal dr avendaño
Estimated Blood Loss:25cc
Fluidnsss:
Drains/Shunts: [address] p[address] fresh 6 fr 24 cmm rt jj stent
Specimens/Cultures: 0
Doppler/Duplex/Angio (Y/N):
Complications: 0
Operative Findings: large median lobe prostate blocking urethra ansd bilartal orifices this was resected allowing access to ureters removed lft and lasered rt stones amd replaced rt jj stent
[2024-11-11] MEDS: ZOFRAN 4 MG IV (13:29)
[2024-11-11] MEDS: COMPAZINE 5 MG IV (14:08)
--- NOTE | 2024-11-11 14:10 | SUR.PHASEI ---
Waiting to tx patient to floor and pt starting c/o nausea again. Pt medicated with compazine as ordered and awaiting floor RN ashby back for report.
[2024-11-11] MEDS: LR 1000 IV (15:00)
--- NOTE | 2024-11-11 15:00 | PTCARENOTE ---
Pt received from the PACU via bed. Transport was w/o incident. Pt is AAOx3, HR irreg. w/murmur. Lungs are clear, resp.easy. Pt with 3 way ponce cath, CBI running at slow to moderate rate. Urine is yellow, not bloody at this time. VSS, pt is
afebrile. Pt instructed on plan of care. Pt verbalized understanding of instructions. Call marquez is within reach.
[2024-11-11] MEDS: BACTRIM 400 MG/80 MG 1 TABLET PO (20:09)
[2024-11-11] MEDS: FLOMAX 0.4 MG PO (20:09)
[2024-11-12 04:08] VITALS: BP 116/58
[2024-11-12] MEDS: LR 1000 IV (04:14)
[2024-11-12 07:35] VITALS: BP 113/58
[2024-11-12 07:50] LABS: Hematocrit 35.9 % (39.0-52.0); Hemoglobin 12.1 g/dL (13.0-18.0)
[2024-11-12] MEDS: BACTRIM 400 MG/80 MG 1 TABLET PO (08:54)
[2024-11-12] MEDS: ZESTRIL 5 MG PO (08:54)
[2024-11-12] MEDS: NORVASC 5 MG PO (08:54)
[2024-11-12] MEDS: PROSCAR 5 MG PO (08:54)
[2024-11-12] MEDS: FLOMAX 0.4 MG PO (08:54)
[2024-11-12] MEDS: LIPITOR 40 MG PO (08:54)
--- NOTE | 2024-11-12 09:12 | W.DCSUMMARY ---
Discharge Summary
Discharge Data
Date of Admission: 11/11/24
Date of Discharge: 11/12/24
Total time spent discharging patient (in min): 30 mins
-
Pending Results: No
Hospital Course
pt had turo and had stone removed sable over night no bleding afebrile home
Discharge Plan
-
Patient Disposition: Home (Routine Discharge)
Discharge Diagnosis/Procedures: bph rt renal stones bilateral jj stents
Referrals:
Mark Rowland MD [Active, Urology]
Referral Note: expect blood in urine irasema=sh antibiotics given in office call [phone] to set up rt stent removal in office in 1- 3 weeks call noew
UNKNOWN - PT DOES,NOT KNOW [Family Provider]
Prescriptions:
Continued
atorvastatin 40 mg Tablet
40 mg PO DAILY
amlodipine 5 mg Tablet
5 mg PO DAILY
benazepril 10 mg Tablet
5 mg PO DAILY
finasteride 5 mg Tablet
5 mg PO DAILY
tamsulosin 0.4 mg capsule
0.4 mg PO BID Qty: 60 0RF
phenazopyridine [Pyridium] 100 mg tablet
100 mg PO BID Qty: 60 0RF
sulfamethoxazole-trimethoprim 400-80 mg Tablet
1 tab PO BID
Discharge Orders:
Discharge Patient (As Directed); Ordered 11/12/24
Ordered By: Mark Rowland
Discharge Date and Time
Print Language: JAMAICAN
--- NOTE | 2024-11-12 09:57 | CM ---
Cm met with patient in room. Patient confirmed demographics. Patient lives independently with . Patient does not have a history of VN, SNF. Patient has a CPAP.
Discussed home care. Patient declined home care if he leaves with ponce stating he feel comfortable with care.
PLAN: Home with family.
[2024-11-12 11:35] VITALS: BP 118/62
== END 2024-11-12 14:05 | disposition home or self-care (01) ==
LOC: SDS 06:15
PROVIDERS: ATTENDING PHYSICIAN Specialist
DX: N40.1 Benign prostatic hyperplasia with lower urinary tract symptoms (principal); N20.0 Calculus of kidney
CPT/HCPCS: 52356; 74018; 76000; 85014; 85018; 87086; C2617; J1580